=== PATIENT | female | born 2000 | race Caucasian/White ===

== ENCOUNTER 2019-10-28 23:28 | Emergency (ER) | payer MEDICAID ==
[2019-10-28 23:34] VITALS: BP 108/65
[2019-10-29 00:11] LABS: APPEARANCE,URINE CLOUDY; BILIRUBIN,URINE NEGATIVE (NEGATIVE); COLOR,URINE YELLOW; GLUCOSE, URINE NEGATIVE (NEGATIVE); KETONES,URINE NEGATIVE (NEGATIVE); LEUKOCYTE ESTERASE,URINE LARGE (NEGATIVE); NITRITE,URINE NEGATIVE (NEGATIVE); PROTEIN,URINE 30 mg/dL (NEGATIVE); URINE SPECIFIC GRAVITY 1.013; UROBILINOGEN,URINE NEGATIVE mg/dL (<2.0)
[2019-10-29] MEDS ORDERED: CEPHALEXIN 500 MG CAPSULE PO ONE (00:31)
--- NOTE | 2019-10-29 00:35 | ER Document Report ---
ED General - General Chief Complaint: Pain With Urination Stated Complaint: URINARY PROBLEMS Mode of Arrival: Ambulatory Information source: Patient TRAVEL OUTSIDE OF THE [place] IN LAST 30 DAYS: No - HPI Onset: Other - over the last few days Onset/Duration: Gradual Quality of pain: Burning, Pressure Severity: Moderate Pain Level: 2 Associated symptoms: Other - pain with urination, urinary frequency Exacerbated by: Denies Relieved by: Denies Similar symptoms previously: Yes - with prior UTIs Recently seen / treated by doctor: Yes - Patient treated for a UTI 1 month ago by her ADMISSIONS DIRECTOR Notes: 19 year old female with a history of urinary reflux who is 25 weeks here in the ER for a UTI like symptoms (burning with urination, suprapubic pain, urinary frequency, seeing blood in her urine). The patient says this feels exactly like prior UTIs. The patient had a UTI about a month ago and she was treated with Macrobid. - Related Data Allergies/Adverse Reactions: pumpkin Allergy (Verified 10/28/19 23:41) Past Medical History - General Information source: Patient - Social History Smoking Status: Never Smoker Frequency of alcohol use: None Drug Abuse: None Lives with: Family Family History: Reviewed & Not Pertinent Patient has suicidal ideation: No Patient has homicidal ideation: No Review of Systems - Review of Systems Constitutional: No symptoms reported EENT: No symptoms reported Cardiovascular: No symptoms reported Respiratory: No symptoms reported Gastrointestinal: Abdominal pain Genitourinary: Burning, Dysuria, Hematuria, Urgency Female Genitourinary: No symptoms reported Musculoskeletal: No symptoms reported Skin: No symptoms reported Hematologic/Lymphatic: No symptoms reported Neurological/Psychological: No symptoms reported -: Yes All other systems reviewed and negative Physical Exam - Vital signs Vitals: Temp Pulse Resp BP Pulse Ox 98.7 F 77 15 108/65 100 10/28/19 23:33 10/28/19 23:33 10/28/19 23:33 10/28/19 23:33 10/28/19 23:33 - Notes Notes: GENERAL: Well-appearing, well-nourished and in no acute distress. HEAD: Atraumatic, normocephalic. EYES: Pupils equal round and reactive to light, extraocular movements intact, sclera anicteric, conjunctiva are normal. ENT: External Ears normal, nares patent, oropharynx clear without exudates. Moist mucous membranes. NECK: Normal range of motion, supple without lymphadenopathy or JVD. LUNGS: Breath sounds clear to auscultation bilaterally and equal. No wheezes rales or rhonchi. HEART: Regular rate and rhythm without murmurs, rubs or gallops. ABDOMEN: Soft, nontender, normoactive bowel sounds. No guarding, no rebound. No masses appreciated. EXTREMITIES: Normal range of motion, no pitting or edema. No clubbing or cyanosis. NEUROLOGICAL: Cranial nerves II through XII grossly intact. Normal speech, normal gait. PSYCH: Normal mood, normal affect. SKIN: Warm, Dry, normal turgor, no rashes or lesions noted. Course - Re-evaluation Re-evalutation: 10/29/19 00:40 The patient has a UTI and she is . She was recently treated with Macrobid so will have her take a week of Keflex. Urine culture sent and pending. Patient has normal vital signs. Patient told to have her ADMISSIONS DIRECTOR Doctor follow up her urine culture results. - Vital Signs Vital signs: Temp Pulse Resp BP Pulse Ox 98.7 F 77 15 108/65 100 10/28/19 23:36 10/28/19 23:33 10/28/19 23:33 10/28/19 23:33 10/28/19 23:33 - Laboratory Laboratory results interpreted by me: 10/28/19 23:45 Urine Protein 30 H Urine Blood MODERATE H Ur Leukocyte Esterase LARGE H Urine Ascorbic Acid 20 H Discharge - Discharge Clinical Impression: UTI (urinary tract infection) Qualifiers: Urinary tract infection type: site unspecified Hematuria presence: with hematuria Qualified Code(s): N39.0 - Urinary tract infection, site not specified Condition: Stable Disposition: HOME, SELF-CARE Instructions: Urinary Tract Infection ([facility]) Additional Instructions: Take antibiotics (Keflex) as prescribed. Drink plenty of fluids in the days to come. Have your ADMISSIONS DIRECTOR Doctor follow up your urine culture results. Seek medical attention for fevers, chills, sweats or if worse. Prescriptions: Cephalexin Monohydrate [Keflex 500 mg Capsule] 500 mg PO BID 7 Days #14 capsule
== END 2019-10-29 00:40 | disposition home or self-care (01) ==
LOC: ER 23:28
DX: O23.42 Unspecified infection of urinary tract in pregnancy, second trimester (principal); O26.892 Other specified pregnancy related conditions, second trimester; R31.0 Gross hematuria; R30.0 Dysuria; R39.15 Urgency of urination; Z3A.25 25 weeks gestation of pregnancy; Z91.018 Allergy to other foods
CPT/HCPCS: 81001; 87086; 87088; 87186; 99283

== ENCOUNTER 2020-02-12 19:35 | Inpatient (IN) | payer OTHER, MEDICAID ==
[2020-02-12] MEDS ORDERED: MAG HYDROX/AL HYDROX/SIMETH SUSP 30 ML UDCUP PO PRN (19:56)
[2020-02-12] MEDS ORDERED: RINGERS SOLUTION,LACTATED 1,000 ML IV PRN (19:56)
[2020-02-12] MEDS ORDERED: ACETAMINOPHEN 325 MG TABLET PO PRN (19:56)
[2020-02-12] MEDS ORDERED: ZOLPIDEM TARTRATE 5 MG TABLET PO PRN (19:56)
[2020-02-12] MEDS ORDERED: DINOPROSTONE 10 MG VAGINAL INSERT.SR PV ONE (19:56)
[2020-02-12] MEDS ORDERED: RINGERS SOLUTION,LACTATED 300 ML IV ONE (19:56)
[2020-02-12] MEDS ORDERED: OXYTOCIN/0.9 % SODIUM CHLORIDE 30 UNIT/500 ML RTUINJ IV PRN (19:56)
[2020-02-12] MEDS ORDERED: DINOPROSTONE 10 MG VAGINAL INSERT.SR ONE (20:40)
[2020-02-12 20:43] LABS: ABSOLUTE EOSINOPHILS # (AUTO) 0.1 10^3/uL (0.0-0.6); ABSOLUTE LYMPHOCYTES (AUTO) 1.5 10^3/uL (0.5-4.7); ABSOLUTE MONOCYTES (AUTO) 0.9 10^3/uL (0.1-1.4); ABSOLUTE NEUT (AUTO) 9.2 10^3/uL (1.7-8.2); BASOPHILS % (AUTO) 0.2 % (0-2); EOSINOPHILS % (AUTO) 0.6 % (0-6); HEMOGLOBIN 10.6 g/dL (12.0-15.5); LYMPHOCYTES % (AUTO) 12.9 % (13-45); MEAN CORPUSCULAR HEMOGLOBIN 31.5 pg (27.0-33.4); MEAN CORPUSCULAR HGB CONC 34.3 g/dL (32.0-36.0); MEAN CORPUSCULAR VOLUME 92 fl (80-97); MONOCYTES % (AUTO) 7.6 % (3-13); PLATELET COUNT 144 10^3/uL (150-450); RED BLOOD COUNT 3.38 10^6/uL (3.72-5.28); RED CELL DISTRIBUTION WIDTH 13.7 % (11.5-14.0); SEGMENTED NEUTROPHILS % (AUTO) 78.7 % (42-78); TOTAL CELLS COUNTED % (AUTO) 100 %; WHITE BLOOD COUNT 11.6 10^3/uL (4.0-10.5)
[2020-02-12 20:57] LABS: APPEARANCE,URINE SLIGHTLY-CLOUDY; BILIRUBIN,URINE NEGATIVE (NEGATIVE); COLOR,URINE YELLOW; GLUCOSE, URINE NEGATIVE (NEGATIVE); KETONES,URINE TRACE mg/dL (NEGATIVE); LEUKOCYTE ESTERASE,URINE MODERATE (NEGATIVE); NITRITE,URINE NEGATIVE (NEGATIVE); PROTEIN,URINE 30 mg/dL (NEGATIVE); URINE SPECIFIC GRAVITY 1.014; UROBILINOGEN,URINE NEGATIVE mg/dL (<2.0)
[2020-02-12 21:22] LABS: URINE AMPHETAMINES SCREEN NEGATIVE; URINE BARBITURATES SCREEN NEGATIVE; URINE BENZODIAZEPINES SCREEN NEGATIVE; URINE COCAINE SCREEN NEGATIVE; URINE MARIJUANA (THC) SCREEN NEGATIVE; URINE METHADONE SCREEN NEGATIVE; URINE PHENCYCLIDINE SCREEN NEGATIVE
[2020-02-13] MEDS ORDERED: ZOLPIDEM TARTRATE 5 MG TABLET ONE (02:46)
--- NOTE | 2020-02-13 04:56 | Admission Physical ---
Datetime Report Generated by CPN: 02/13/2020 04:56 CURRENT ADMISSION Chief Complaint: Scheduled Induction of Labor Indication for Induction: Postterm Admit Impression : Postterm, Intrauterine ; No Active Labor; Induction of Labor Admit Plan: Admit to Unit; Initiate Labor Induction Protocol ALLERGIES Medication Allergies: No Medication Allergies: pumpkin (02/12/2020) Latex: No Latex Allergies OBSTETRICAL HISTORY EDC: 02/09/2020 00:00 : 2 Para: 0 Term: 0 : 0 SAB: 0 IAB: 0 Ectopic: 1 Cesareans: 0 VBACs: 0 Multiple Births: 0 Gestational Diabetes: No Rh Sensitization: No Incompetent Cervix: No MAXIMILIANO: No Infertility: No ART Treatment: No Uterine Anomaly: No IUGR: No Hx Previous C/S: No Macrosomia: No Hx Loss/Stillborn: No PIH: No Hx : No Placenta Previa/Abruption: No Depression/PP Depression: No PTL/PROM: No Post Hemorrhage: No Current Procedures: Ultrasound Obstetrical History Comments: G1- 2017 ectopic G2- current SEE RECORDS Alcohol: No Marijuana : No Cocaine: No Other Illicit Drugs: No Cigarettes: Never Smoker. [id number] MEDICAL HISTORY Diabetes: No Blood Transfusion: No Pulmonary Disease (Asthma, TB): No Breast Disease: No Hypertension: No Torque Tester Surgery: No Heart Disease: No Hosp/Surgery: No Autoimmune Disorder: No Anesthetic Complications: No Kidney Disease: No Abnormal Pap Smear: No Neuro/Epilepsy: No Psychiatric Disorders: No Other Medical Diseases: No Hepatitis/Liver Disease: No Significant Family History: No Varicosities/Phlebitis: No Trauma/Violence : No Thyroid Dysfunction: No INFECTIOUS HISTORY Gonorrhea: No Genital Herpes: No Chlamydia: No Tuberculosis: No Syphilis: No Hepatitis: No HIV/AIDS Exposure: No Rash or Viral Illness: No HPV: No PHYSICAL EXAM General: Normal HEENT: Normal Neurologic: Normal Thyroid: Normal Heart: Normal Lungs: Normal Breast: Normal Back: Normal Abdomen: Normal Genitourinary Exam: Normal Extremities: Normal DTRs: Normal Pelvic Type: Adequate Vital Signs: Reviewed; Within Normal Limits VAGINAL EXAM Dilatation: 1 Effacement: 25 Station: -3 MEMBRANES Pooling: Negative Membranes: Intact FETUS A EGA: 40.4 Monitoring: External US FHR- Baseline: 120 Variability: Moderate 6-25bpm Accelerations: 10X10 Decelerations: None FHR Category: Category II FHR Comments: continue to monitor closely Cat 2 strip which may be result of medications given overnight Estimated Weight (gm): 3700 Presentation: Vertex PLANS FOR LABOR AND DELIVERY Labor and Delivery: None Pain Management: Medications; Epidural Feeding Preference: Breast Circumcision: Yes INFORMED CONSENT Signature: with User ID: [email or web address]
--- NOTE | 2020-02-13 08:52 | L&D Progress Notes ---
PROGRESS NOTES Datetime Report Generated by CPN: 02/13/2020 08:52 PROGRESS NOTE Impression: Reassuring Heart Rate Plan: Continue Present Management; Induction Vital Signs : Reviewed; Within Normal Limits Comment: at 40.4 wks here for IOL. s/p Cervidil placed last night. Pt eating breakfast this morning, Comfortable, no complaints. Will plan to start Pitocin and then AROM w/ moderate contractions. Pt plans epidural when uncomfortable, GBS negative. Attending MD today is Dr Banksb VAGINAL EXAM Dilatation: 1 Effacement: 25 Station: -3 LAST VAGINAL EXAM-NURSING Nursing Exam Dilitation: 2.5 Nursing Exam Effacement: 80 Nursing Exam Station: -1 Nursing Exam Contractions: pt sitting up. MEMBRANES Pooling: Negative Membranes: Intact FETUS A FHR - Baseline: 145 Monitoring: External US Variability: Moderate 6-25bpm Accelerations: 15X15 Decelerations: None FHR Category: Category I : 40.4 Estimated Weight (gm): 3700 Presentation: Vertex SIGNATURE SIGNATURE: [id number];[id number] Assignment: Bi Ortiz MD Signature: with User ID: Sharon : with User ID: Sharon
[2020-02-13] MEDS ORDERED: OXYTOCIN 10 UNIT/ML VIAL ONE (09:52)
[2020-02-13] MEDS ORDERED: MISOPROSTOL 0.2 MG TABLET ONE (09:52)
[2020-02-13] MEDS ORDERED: LIDOCAINE 1% INJ-PF (10 MG/ML) 30 ML SDV ONE (09:52)
[2020-02-13] MEDS ORDERED: OXYTOCIN/0.9 % SODIUM CHLORIDE 30 UNIT/500 ML RTUINJ ONE (09:53)
--- NOTE | 2020-02-13 10:58 | L&D Progress Notes ---
PROGRESS NOTES Datetime Report Generated by CPN: 02/13/2020 10:57 PROGRESS NOTE Impression: Reassuring Heart Rate Procedures: Artificial ROM; Sterile Vag Exam Plan: Continue Present Management; Induction Vital Signs : Reviewed; Within Normal Limits Comment: Pitocin infusing, pt states she can tell contractions are becoming stronger. VE 2/90/-1, vtx, AROM w/ small amount clear navin fluid. Position changes encouraged. pt may have an epidural if desires. VAGINAL EXAM Dilatation: 1 Effacement: 25 Station: -3 LAST VAGINAL EXAM-NURSING Nursing Exam Dilitation: 2.0 Nursing Exam Effacement: 90 Nursing Exam Station: -1 Nursing Exam Contractions: pt sitting up. MEMBRANES Pooling: Negative Membranes: Ruptured Amniotic Fluid Color: Clear FETUS A FHR - Baseline: 140 Monitoring: External US Variability: Moderate 6-25bpm Accelerations: 15X15 Decelerations: None FHR Category: Category I : 40.4 Estimated Weight (gm): 3700 Presentation: Vertex SIGNATURE SIGNATURE: [id number];[id number] Assignment: Bi Ortiz MD Signature: with User ID: Sharon : with User ID: Sharon
[2020-02-13] MEDS ORDERED: PROMETHAZINE HCL INJ 25 MG/1 ML VIAL IV ONE (11:01)
[2020-02-13] MEDS ORDERED: NALBUPHINE HCL INJ 10 MG/1 ML AMPULE INJ ONE (11:01)
[2020-02-13] MEDS ORDERED: PROMETHAZINE HCL INJ 25 MG/1 ML VIAL ONE (11:03)
[2020-02-13] MEDS ORDERED: NALBUPHINE HCL INJ 10 MG/1 ML AMPULE ONE (11:03)
[2020-02-13] MEDS ORDERED: FENTANYL CITRATE INJ/PF 100 MCG/2 ML AMPUL ONE ×2 (12:20→16:47)
[2020-02-13] MEDS ORDERED: FENTANYL/BUPIVACAINE/NS/PF 300 MCG/150 ML RTUINJ EPI ONE (12:20)
[2020-02-13] MEDS ORDERED: ROPIVACAINE HCL 0.2% INJ/PF (2 MG/ML) 20 ML SDV ONE (12:20)
[2020-02-13] MEDS ORDERED: EPHEDRINE SULFATE INJ 50 MG/1 ML AMPULE ONE (12:20)
--- NOTE | 2020-02-13 13:38 | L&D Progress Notes ---
PROGRESS NOTES Datetime Report Generated by CPN: 02/13/2020 13:38 PROGRESS NOTE Impression: Normal Progression of Labor Procedures: Sterile Vag Exam Plan: Continue Present Management; Induction; Anticipate Vaginal Delivery Plan Other: epidural placed Vital Signs : Reviewed; Within Normal Limits Comment: Epidural in place, pt is becoming comfortable. VE per RN pt is now 4-5 cm. Position changes encouraged. VAGINAL EXAM Dilatation: 1 Effacement: 25 Station: -3 LAST VAGINAL EXAM-NURSING Nursing Exam Dilitation: 4.5 Nursing Exam Effacement: 90 Nursing Exam Station: -1 Nursing Exam Contractions: pt sitting up. MEMBRANES Pooling: Negative Membranes: Ruptured Amniotic Fluid Color: Clear FETUS A FHR - Baseline: 125 Monitoring: External US Variability: Moderate 6-25bpm Accelerations: 15X15 Decelerations: Early FHR Category: Category I : 40.4 Estimated Weight (gm): 3700 Presentation: Vertex SIGNATURE SIGNATURE: [id number];[id number] Assignment: Bi Ortiz MD Signature: with User ID: Sharon : with User ID: Sharon
--- NOTE | 2020-02-13 16:09 | L&D Progress Notes ---
PROGRESS NOTES Datetime Report Generated by CPN: 02/13/2020 16:08 PROGRESS NOTE Impression: Normal Progression of Labor Procedures: Sterile Vag Exam Plan: Continue Present Management; Induction; Anticipate Vaginal Delivery Plan Other: epidural placed Vital Signs : Reviewed; Within Normal Limits Comment: Pt c/o some increased rectal pressure. VE 9/90/0. Position changes encouraged, Anticipate VAGINAL EXAM Dilatation: 1 Effacement: 25 Station: -3 LAST VAGINAL EXAM-NURSING Nursing Exam Dilitation: 9.0 Nursing Exam Effacement: 90 Nursing Exam Station: 0 Nursing Exam Contractions: pt sitting up. MEMBRANES Pooling: Negative Membranes: Ruptured Amniotic Fluid Color: Clear FETUS A FHR - Baseline: 125 Monitoring: External US Variability: Moderate 6-25bpm Accelerations: 15X15 Decelerations: Early; Variable FHR Category: Category I : 40.4 Estimated Weight (gm): 3700 Presentation: Vertex SIGNATURE SIGNATURE: [id number];[id number] Assignment: Bi Ortiz MD Signature: with User ID: Sharon : with User ID: Sharon
[2020-02-13] MEDS ORDERED: GLYCERIN/WITCH HAZEL LEAF 1 EACH MED..WIPE TP PRN (19:27)
[2020-02-13] MEDS ORDERED: PROMETHAZINE HCL 25 MG TABLET PO PRN (19:27)
[2020-02-13] MEDS ORDERED: DIBUCAINE 1% OINTMENT 28 GM TP PRN (19:27)
[2020-02-13] MEDS ORDERED: DIPHENHYDRAMINE HCL 25 MG CAPSULE PO PRN (19:27)
[2020-02-13] MEDS ORDERED: ACETAMINOPHEN 650 MG SUPP.RECT PR PRN (19:27)
[2020-02-13] MEDS ORDERED: ZOLPIDEM TARTRATE 5 MG TABLET PO PRN (19:27)
[2020-02-13] MEDS ORDERED: DIPH/PERTUSS(ACELL)/TETANUS VAC/PF 0.5 ML SYR (>=10YO) IM PRN (19:27)
[2020-02-13] MEDS ORDERED: MAGNESIUM HYDROXIDE SUSP 30 ML UDCUP PO PRN (19:27)
[2020-02-13] MEDS ORDERED: PSEUDOEPHEDRINE HCL 30 MG TABLET PO PRN (19:27)
[2020-02-13] MEDS ORDERED: PROMETHAZINE HCL INJ 25 MG/1 ML VIAL IV PRN (19:27)
[2020-02-13] MEDS ORDERED: MEASLES,MUMPS&RUBELLA VACC/PF 0.5 ML VIAL SUBCUT PRN (19:27)
[2020-02-13] MEDS ORDERED: PROMETHAZINE HCL 25 MG SUPP.RECT PR PRN (19:27)
[2020-02-13] MEDS ORDERED: ACETAMINOPHEN WITH CODEINE #3 TABLET PO PRN (19:27)
[2020-02-13] MEDS ORDERED: NA PHOS,M-B/NA PHOS,DI-BA (ADULT) 133 ML ENEMA PR PRN (19:27)
[2020-02-13] MEDS ORDERED: OXYTOCIN/0.9 % SODIUM CHLORIDE 30 UNIT/500 ML RTUINJ IV PRN (19:27)
[2020-02-13] MEDS ORDERED: ACETAMINOPHEN WITH CODEINE #3 TABLET ONE (19:33)
--- NOTE | 2020-02-13 21:59 | Birth Certificate Data ---
Cert Data Datetime Report Generated by CPN: 02/13/2020 21:59 CERTIFICATE DATA 47a. Care: Yes (02/12/2020 17:43:Melissa Arguello RN) 47b. Date of First Visit: 07/25/2019 00:00 (02/12/2020 17:43:Melissa Arguello RN) 47c. Date of Last Visit: 02/12/2020 00:00 (02/12/2020 17:43:Melissa Arguello RN) 47d. Number of Visits: 14 (02/12/2020 17:43:Melissa Arguello RN) 48a. Number of Prev Live Births: 0 (02/12/2020 17:43:Brenda Quiroz RN) 48b. Now Livin (02/12/2020 17:43:Brenda Quiroz RN) 48c. Live Births Now : 0 (02/12/2020 17:43:QS system process) 48e. Losses: 1 (02/12/2020 17:43:Kelsi Bellavance, RNC) RISK FACTORS IN THIS 49a. Diabetes: No (02/12/2020 17:43:Rosa Isela Kong RN) 49b. Hypertension: No (02/12/2020 17:43:Rosa Isela Kong RN) 49c. Previous Births: 0 (02/12/2020 17:43:Melissa Arguello RN) 49d. Stillborns: No (02/12/2020 17:43:Rosa Isela Kong RN) 49d. IUGR: No (02/12/2020 17:43:Rosa Isela Kong RN) 49e. Infertility Treatment: No (02/12/2020 17:43:Rosa Isela Kong RN) 49f. Previous Cesareans: 0 (02/12/2020 17:43:Melissa Arguello RN) Mother's Height 50b. Height Inches: 65 (02/12/2020 19:57:QS system process) Mother's Weight 51a. Pre- Weight: 109 (02/12/2020 17:43:Melissa Arguello RN) 51b. Weight at Time of Delivery: 152 (02/13/2020 21:50:QS system process) Infections Present/Treated 53a. Gonorrhea: No (02/12/2020 17:43:Rosa Isela Kong RN) Results this Hospital Visit : Negative (02/12/2020 17:43:Melissa Arguello RN) 53b. Syphilis: No (02/12/2020 17:43:Rosa Isela Kong RN) Results this Hospital Visit: NONREACTIVE (02/12/2020 20:22:QS system process) 53c. Chlamydia: No (02/12/2020 17:43:Rosa Isela Kong RN) Results this Hospital Visit: Negative (02/12/2020 17:43:Melissa Arguello RN) 53d. Hepatitis B: No (02/12/2020 17:43:Rosa Isela Kong RN) Results this Hospital Visit: Negative (02/12/2020 17:43:Melissa Arguello RN) 53e. Hepatitis C: Negative (02/12/2020 17:43:Melissa Arguello RN) 53i. Date Tested: 08/07/2019 00:00 (02/12/2020 17:43:Melissa Arguello RN) Obstetric Procedures 54a, b, c. Obstetric Procedures: Ultrasound (02/12/2020 17:43:Rosa Isela Kong RN) Onset of Labor 56a. PROM >12 Hrs: 8.45 (02/12/2020 17:43:QS system process) 56b. Precipitous Labor <3 Hrs: 6 (02/12/2020 17:43:QS system process) 56c. Prolonged Labor > 20 Hrs: 6 (02/12/2020 17:43:QS system process) 57a. Induction of Labor: Induction (02/12/2020 17:43:Brenda Quiroz RN) 57a. Induction of Labor: Cervidil (02/12/2020 21:00:Rosa Isela Kong RN) 57c. Non-Vertex Presentation A: Vertex (02/12/2020 17:43:Melissa Arguello RN) 57d. Steroids - Lung Mat: None (02/12/2020 17:43:Brenda Quiroz RN) 57d. Steroids - Lung Mat: Not Applicable (02/12/2020 17:43:Brenda Quiroz RN) 57e. Antibiotics During Labor: n/a (02/12/2020 17:43:Brenda Quiroz RN) 57f. Mat [place] or Temp >100.4: 98.7 (02/12/2020 17:43:Melissa Arguello RN) 57g. Moderate/Heavy Meconium: Clear (02/13/2020 10:48:Brenda Quiroz RN) 57h. Intolerance of Labor: N/A (02/12/2020 17:43:Brenda Quiroz RN) : N/A (02/12/2020 17:43:Brenda Quiroz RN) 57i. Epidural/Spinal Anesthesia: Epidural (02/12/2020 17:43:Brenda Quiroz RN) Method of Delivery 58a. Forceps - Unsuccessful A: N/A (02/12/2020 17:43:Melissa Arguello RN) 58b. Vacuum - Unsuccessful A: N/A (02/12/2020 17:43:Melissa Arguello RN) 58c. Presentation at 58c. Presentation at - A : Vertex (02/12/2020 17:43:Melissa Arguello RN) 58c. Presentation at - A : N/A (02/12/2020 17:43:Melissa Arguello RN) 58c. Presentation at - A : Cephalic (02/12/2020 17:43:Brenda Quiroz RN) Final Route and Method of Del 58d. Baby A Route/Delivery: Vaginal (02/13/2020 19:15:Brenda Quiroz RN) 58e. Trial of Labor Attempted: No (02/12/2020 17:43:Brenda Quiroz RN) 58e. Trial of Labor Attempted A: N/A (02/12/2020 17:43:Brenda Quiroz RN) 58e. Trial of Labor Attempted B: N/A (02/12/2020 17:43:Brenda Quiroz RN) Maternal Morbidity 59b. 3rd or 4th Degree Lacs: Vaginal; Periurethral (02/12/2020 17:43:Brenda Quiroz RN) 59b. 3rd or 4th Degree Lacs: left side vaginal wall tear (02/12/2020 17:43:Brenda Quiroz RN) Birthweight Baby A: 3586 (02/12/2020 17:43:Nancy Montejo RN) 60a. Pounds : 7 (02/12/2020 17:43:QS system process) 60b. Ounces: 14 (02/12/2020 17:43:QS system process) 61. GA at Delivery Baby A: 40.4 (02/12/2020 17:43:Brenda Quiroz RN) : Full Term- 39- 40.6 Weeks (02/12/2020 17:43:QS system process) 62a. 5 Minute Baby A: 9 (02/12/2020 17:43:QS system process)
--- NOTE | 2020-02-13 21:59 | Delivery Summary ---
Del Sum A-C Datetime Report Generated by CPN: 02/13/2020 21:59 DELIVERY PERSONNEL DELIVERY PERSONNEL: [id number] Delivery Doctor:: Bi Ortiz MD Labor and Delivery Nurse:: Brenda Quiroz RNsheeter helper Nurse:: Nancy Montejo RN Utility Worker Film Processing/BUSINESS ANALYST [employer]: Shannon Nunes CNA II Utility Worker Film Processing/BUSINESS ANALYST [employer]: Dana Shipley, ST MATERNAL INFORMATION Delivery Anesthesia: Epidural Medications After Delivery: Pitocin 30 Units in 500ml NS/D5W; Cytotec 1000mcg Per Rectum/Vagina Delivery QBL: 200 Maternal Complications: None LABOR SUMMARY EDC: 02/09/2020 00:00 No. Babies in Womb: 1 Attempted: No Labor Anesthesia: Epidural LABOR INFORMATION Reason for Induction: Post Dates; Other Reason for Induction- Other: Elective Onset of Labor: 02/13/2020 13:00 Complete Dilatation: 02/13/2020 18:02 Cervical Ripening Agents: Cervidil Oxytocin: Induction Group B Beta Strep: Negative Antibiotics # of Doses: 0 Antibiotics Time of Last Dose: n/a Name of Antibiotic Given: n/a Steroids Given: None Reason Steroids Not Administered: Not Applicable MEMBRANES Membranes Rupture Method: Artificial Rupture of Membranes: 02/13/2020 10:48 Length of Rupture (hr): 8.45 Amniotic Fluid Color: Clear Amniotic Fluid Amount: Moderate Amniotic Fluid Odor: Normal STAGES OF LABOR Stage 1 hr: 5 Stage 1 min: 2 Stage 2 hr: 1 Stage 2 min: 13 Stage 3 hr: 0 Stage 3 min: 3 Total Time in Labor hr: 6 Total Time in Labor min: 18 VAGINAL DELIVERY Episiotomy: None Laceration #1: Vaginal; Periurethral Laceration Extension #1: N/A Other Laceration: left side vaginal wall tear Laceration Repair: Yes Sponge Count Correct: Yes Sharps Count Correct: Yes CSECTION DELIVERY Primary Indication: N/A Secondary Indication: N/A CSection Incidence: N/A Labor: N/A Elective: N/A CSection Incision: N/A BABY A INFORMATION Delivery Date/Time: 02/13/2020 19:15 Method of Delivery: Vaginal Nurse Controlled Delivery: No Born in Route : No : N/A Forceps: N/A Vacuum Extraction: N/A Shoulder Dystocia : No PRESENTATION/POSITION BABY A Presentation: Cephalic Cephalic Presentation: Vertex Vertex Position: Right Occipital Anterior Breech Presentation: N/A PLACENTA INFORMATION BABY A Placenta Delivery Time : 02/13/2020 19:18 Placenta Method of Delivery: Spontaneous Placenta Status: Delivered SCORES BABY A Heart Rate 1 min: >100 bpm Resp Effort 1 min: Good Cry Reflex Irritability 1 min: Cough or Sneeze or Pulls Away Muscle Tone 1 min: Active Motion Color 1 min: Blue/Pale Resuscitation Effort 1 min: Tactile Stimulation SCORE 1 MIN: 8 Heart Rate 5 min: >100 bpm Resp Effort 5 min: Good Cry Reflex Irritability 5 min: Cough or Sneeze or Pulls Away Muscle Tone 5 min: Active Motion Color 5 min: Body [place], Extremities Blue Resuscitation Effort 5 min: Tactile Stimulation SCORE 5 MIN: 9 INFORMATION BABY A Gestational Age at Delivery: 40.4 Gestational Status: Full Term- 39- 40.6 Weeks Outcome : Liveborn Condition : Stable Sex: Male IDENTIFICATION BABY A Verification Date/Time: 02/13/2020 19:33 ID Band Number: [id number] Mother's Name Verified: Yes RN Verifying Infant: D Bellavance RN/E Jilek RN WEIGHT/LENGTH BABY A Infant Birthweight (gm): 3586 Weight (lb): 7 Infant Weight (oz): 14 Infant Length (in): 20.25 Length (cm): 51.44 CORD INFORMATION BABY A No. Cord Vessels: 3 Nuchal Cord : Around Neck x1, Loose Cord Blood Taken: Yes-For Eval (Mom's Blood Type - or O+) Infant Suction: Mouth; Nose ASSESSMENT BABY A Infant Complications: None Physical Findings at Delivery: Within Normal Limits; Caput Succedaneum Skin to Skin: Yes Transferred To: Remains with Mother BABY B INFORMATION : N/A SIGNATURES Signature: with User ID: [email or web address]
[2020-02-13] MEDS: FAMOTIDINE 20 MG TABLET PO SCH (22:20)
[2020-02-13] MEDS: IBUPROFEN 800 MG TABLET PO SCH (22:20)
[2020-02-13] MEDS: BENZOCAINE/MENTHOL AEROSOL SPRAY 56 ML TOP PRN (22:33)
[2020-02-14] MEDS: IBUPROFEN 800 MG TABLET PO SCH ×3 (05:58→21:33)
[2020-02-14 06:50] LABS: HEMATOCRIT 26.3 % (36.0-47.0); HEMOGLOBIN 9.1 g/dL (12.0-15.5); MEAN CORPUSCULAR HGB CONC 34.7 g/dL (32.0-36.0); MEAN CORPUSCULAR VOLUME 92 fl (80-97); PLATELET COUNT 128 10^3/uL (150-450); RED BLOOD COUNT 2.85 10^6/uL (3.72-5.28); RED CELL DISTRIBUTION WIDTH 13.6 % (11.5-14.0); WHITE BLOOD COUNT 16.5 10^3/uL (4.0-10.5)
[2020-02-14] MEDS: FERROUS SULFATE 325 MG TABLET PO SCH ×2 (09:05→17:26)
[2020-02-14] MEDS: SENNOSIDES/DOCUSATE 8.6-50 MG 1 EACH TABLET PO SCH (09:05)
[2020-02-14] MEDS: DOCUSATE SODIUM 100 MG CAPSULE PO SCH ×2 (09:05→17:26)
[2020-02-14] MEDS: PRENATAL VITAMIN W DHA CAPSULE PO SCH (09:05)
[2020-02-14] MEDS: FAMOTIDINE 20 MG TABLET PO SCH ×2 (09:05→21:33)
--- NOTE | 2020-02-14 12:44 | PDOC PROGRESS REPORT ---
Subjective-OB Progress Note for:: 02/14/20 Subjective: 19yo G2 now P1 s/p ppd1. Pt ambulating and voiding without difficulty. Pain well controlled with medication, only concern today is rectal discomfort/pressure when using the bathroom Physical Exam (OB) Vital Signs: Temp Pulse Resp BP Pulse Ox 98.3 F 86 16 109/72 100 02/14/20 07:50 02/14/20 07:50 02/14/20 07:50 02/14/20 07:50 02/14/20 07:50 Intake & Output 02/13/20 02/14/20 02/15/20 06:59 06:59 06:59 Weight 69.4 kg - General General Appearance: Appears well In distress: None - PIH/Pre-Eclampsia DTR's: 2 + Clonus: Negative Headache: Absent Epigastric Pain: No Visual Changes: No - Maternal Morbidity 59. Maternal Morbidity (serious complications experinced by the mother associated with labor and delivery: None of the above - Episiotomy/Laceration Site Condition: Well Approximated - Lochia Lochia Amount: Small 10-25 ml Lochia Color: Rubra/Red - Abdomen Description: Soft Hernia Present: No Fundal Description: Firm, Midline Fundal Height: u/u - u/2 - Respiratory Respiratory Status: No respiratory distress - Extremities Upper extremity: Normal inspection Lower extremities: Normal inspection - Neurological Cognition: Normal Orientation: AAOx4 - Psychological Associated symptoms: Normal affect, Normal mood Objective-Diagnostic Laboratory: 02/14/20 06:28 02/14/20 06:28 WBC 16.5 H RBC 2.85 L Hgb 9.1 L Hct 26.3 L MCV 92 MCH 32.0 MCHC 34.7 RDW 13.6 Plt Count 128 L Assessment and Plan(PN) - Assessment and Plan (1) Obstetric vaginal laceration Qualifiers: Perineal laceration presence: without perineal laceration Qualified Code(s): O71.4 - Obstetric high vaginal laceration alone Is this a current diagnosis for this admission?: Yes Plan: Routine pp care, continue to monitor for s/s of pp infection (2) Periurethral laceration, delivered, current hospitalization Is this a current diagnosis for this admission?: Yes Plan: Routine pp care continue to monitor for s/s of pp infection (3) Anemia complicating , third trimester Is this a current diagnosis for this admission?: Yes Plan: increase dietary iron and FeSO4 BID (4) 40 weeks gestation of Is this a current diagnosis for this admission?: Yes Plan: delivered - Time Spent with Patient Time with patient: Less than 15 minutes Medications reviewed and adjusted accordingly: Yes - Disposition Anticipated Discharge Disposition: Home, Self Care Anticipated Discharge Timeframe: within 24 hours
[2020-02-14] MEDS: BENZOCAINE/MENTHOL AEROSOL SPRAY 56 ML TOP PRN (21:34)
[2020-02-15] MEDS: IBUPROFEN 800 MG TABLET PO SCH ×2 (05:06→14:08)
[2020-02-15 08:11] VITALS: BP 104/53
--- NOTE | 2020-02-15 09:12 | PDOC PROGRESS REPORT ---
Subjective-OB Progress Note for:: 02/15/20 Subjective: Ready to go home. Physical Exam (OB) Vital Signs: Temp Pulse Resp BP Pulse Ox 98.0 F 81 18 104/53 L 99 02/15/20 07:44 02/15/20 07:44 02/15/20 07:44 02/15/20 07:44 02/15/20 07:44 - PIH/Pre-Eclampsia DTR's: 2 + Clonus: Negative Headache: Absent Epigastric Pain: No Visual Changes: No - Maternal Morbidity 59. Maternal Morbidity (serious complications experinced by the mother associated with labor and delivery: None of the above - Lochia Lochia Amount: Scant < 10 ml Lochia Color: Rubra/Red - Abdomen Description: Soft, Round Hernia Present: No Bowel Sounds: Normoactive Flatus Presence: Present Stool: Yes Fundal Description: Firm, Midline Fundal Height: u/u - u/2 Objective-Diagnostic Laboratory: 02/14/20 06:28 Assessment and Plan(PN) - Time Spent with Patient Time with patient: 15-25 minutes Medications reviewed and adjusted accordingly: Yes - Disposition Anticipated Discharge Disposition: Home, Self Care Anticipated Discharge Timeframe: within 24 hours
--- NOTE | 2020-02-15 09:24 | PDOC DISCHARGE SUMMARY ---
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?: Yes (5) Obstetric vaginal laceration Is this a current diagnosis for this admission?: Yes (6) Periurethral laceration, delivered, current hospitalization Is this a current diagnosis for this admission?: Yes - Additional Information Resuscitation Status: Full Code Discharge Diet: Regular Discharge Activity: Activity As Tolerated, Balance Activity w/Rest, Pelvic Rest, Slowly Increase Activity, No tub bath Referrals: MAIKEL KIRK MD [ACTIVE STAFF] - Home Medications: Ferrous Sulfate [Feosol 325 mg Tablet] 325 mg PO BID tablet 02/15/20 HPI Gestational Age: 40.4 wks Reason(s) for Admission: Induction of Labor Procedures: Ultrasound Intrapartum Procedure(s): Spontaneous Vaginal Delivery Complication(s): Laceration-Periurethral Hospital Course 59. Maternal Morbidity (serious complications experinced by the mother associated with labor and delivery: None of the above Results Laboratory Results: WBC 16.5 10^3/uL (4.0-10.5) H 02/14/20 06:28 RBC 2.85 10^6/uL (3.72-5.28) L 02/14/20 06:28 Hgb 9.1 g/dL (12.0-15.5) L 02/14/20 06:28 Hct 26.3 % (36.0-47.0) L 02/14/20 06:28 MCV 92 fl (80-97) 02/14/20 06:28 MCH 32.0 pg (27.0-33.4) 02/14/20 06:28 MCHC 34.7 g/dL (32.0-36.0) 02/14/20 06:28 RDW 13.6 % (11.5-14.0) 02/14/20 06:28 Plt Count 128 10^3/uL (150-450) L 02/14/20 06:28 Lymph % (Auto) 12.9 % (13-45) L 02/12/20 20:22 [place] % (Auto) 7.6 % (3-13) 02/12/20 20:22 Eos % (Auto) 0.6 % (0-6) 02/12/20 20:22 Baso % (Auto) 0.2 % (0-2) 02/12/20 20:22 Absolute Neuts (auto) 9.2 10^3/uL (1.7-8.2) H 02/12/20 20:22 Absolute Lymphs (auto) 1.5 10^3/uL (0.5-4.7) 02/12/20 20:22 Absolute Monos (auto) 0.9 10^3/uL (0.1-1.4) 02/12/20 20:22 Absolute Eos (auto) 0.1 10^3/uL (0.0-0.6) 02/12/20 20:22 Absolute Basos (auto) 0.0 10^3/uL (0.0-0.2) 02/12/20 20:22 Seg Neutrophils % 78.7 % (42-78) H 02/12/20 20:22 Urine Color YELLOW 02/12/20 19:57 Urine Appearance SLIGHTLY-CLOUDY 02/12/20 19:57 Urine pH 6.0 (5.0-9.0) 02/12/20 19:57 Ur Specific [place] 1.014 02/12/20 19:57 Urine Protein 30 mg/dL (NEGATIVE) H 02/12/20 19:57 Urine Glucose (UA) NEGATIVE mg/dL (NEGATIVE) 02/12/20 19:57 Urine Ketones TRACE mg/dL (NEGATIVE) H 02/12/20 19:57 Urine Blood MODERATE (NEGATIVE) H 02/12/20 19:57 Urine Nitrite NEGATIVE (NEGATIVE) 02/12/20 19:57 Urine Bilirubin NEGATIVE (NEGATIVE) 02/12/20 19:57 Urine Urobilinogen NEGATIVE mg/dL (<2.0) 02/12/20 19:57 Ur Leukocyte Esterase MODERATE (NEGATIVE) H 02/12/20 19:57 Urine Ascorbic Acid NEGATIVE (NEGATIVE) 02/12/20 19:57 Urine Opiates Screen NEGATIVE 02/12/20 19:57 Urine Methadone Screen NEGATIVE 02/12/20 19:57 Ur Barbiturates Screen NEGATIVE 02/12/20 19:57 Ur Phencyclidine Scrn NEGATIVE 02/12/20 19:57 Ur Amphetamines Screen NEGATIVE 02/12/20 19:57 U Benzodiazepines Scrn NEGATIVE 02/12/20 19:57 Urine Cocaine Screen NEGATIVE 02/12/20 19:57 U Marijuana (THC) Screen NEGATIVE 02/12/20 19:57 RPR NONREACTIVE (NONREACTIVE) 02/12/20 20:22 Blood Type O POSITIVE 02/12/20 20:22 Antibody Screen NEGATIVE 02/12/20 20:22 Plan Plan of Treatment: Follow up at [facility] in 4 wks or prn. Pelvic rest x 4 -6 wks. Time Spent: Greater than 30 Minutes
[2020-02-15] MEDS: SENNOSIDES/DOCUSATE 8.6-50 MG 1 EACH TABLET PO SCH (10:27)
[2020-02-15] MEDS: FAMOTIDINE 20 MG TABLET PO SCH (10:27)
[2020-02-15] MEDS: PRENATAL VITAMIN W DHA CAPSULE PO SCH (10:27)
[2020-02-15] MEDS: FERROUS SULFATE 325 MG TABLET PO SCH (10:27)
[2020-02-15] MEDS: DOCUSATE SODIUM 100 MG CAPSULE PO SCH (10:27)
[2020-02-15] MEDS: BENZOCAINE/MENTHOL AEROSOL SPRAY 56 ML TOP PRN (14:10)
== END 2020-02-15 14:37 | disposition home or self-care (01) | DRG 806 ==
LOC: LR 19:35 → 2S 02-13 21:47
PROVIDERS: ADMIT Obstetrics & Gynecology; ATTEND Obstetrics & Gynecology Gynecology
PROC: 10E0XZZ Delivery of Products of Conception, External Approach (ICD-10-PCS; principal; 2020-02-13)
PROC: 0UQGXZZ Repair Vagina, External Approach (ICD-10-PCS; 2020-02-13)
PROC: 0UQMXZZ Repair Vulva, External Approach (ICD-10-PCS; 2020-02-13)
DX: O48.0 Post-term pregnancy (principal); O71.4 Obstetric high vaginal laceration alone; Z37.0 Single live birth; Q79.60 Ehlers-Danlos syndrome, unspecified; O69.81X0 Labor and delivery complicated by cord around neck, without compression, not applicable or unspecified; Z3A.40 40 weeks gestation of pregnancy; O71.82 Other specified trauma to perineum and vulva; O99.02 Anemia complicating childbirth; D64.9 Anemia, unspecified; Z91.018 Allergy to other foods
CPT/HCPCS: 1967; 36415; 80307; 81005; 85025; 85027; 86592; 86850; 86900; 86901; C1758; J2300; J2550; J2590; J2795; J3010; J3490